=== PATIENT | male | born 1940 | race Two or more races ===

== ENCOUNTER 2017-08-21 17:18 | Emergency (ER) | payer MEDICARE, MEDICAID ==
[~2017-08-21] VITALS: Ht 172.7 cm; Wt 89.8 kg
--- NOTE | 2017-08-21 17:35 | NUR ---
PT BIB [facility] FOR COUGH AND CONGESTION X 2 MONTHS WITH RIB PAIN THAT WORSENS WITH COUGH. VSS. SEEN BY MD FOR EVAL. IV ACCESS STARTED. BLOOD DRAWN FOR LABS. SAFETY AND COMFORT MEASURES PROVIDED. WILL MONITOR.
[2017-08-21 17:48] LABS: BASOPHILS % (AUTO) 0.5 % (0.0-2.0); EOSINOPHILS # (AUTO) 0.1 /CMM (0.0-0.7); EOSINOPHILS % (AUTO) 1.3 % (0.0-6.0); HEMATOCRIT 43 % (39-51); HEMOGLOBIN 14.3 g/dL (13.5-17.5); LYMPHOCYTES # (AUTO) 1.7 /CMM (0.8-4.8); LYMPHOCYTES % (AUTO) 21.4 % (20.0-44.0); MEAN CORPUSCULAR HEMOGLOBIN 27 PG (26.0-33.0); MEAN CORPUSCULAR HGB CONC 33 g/dl (31.0-36.0); MEAN CORPUSCULAR VOLUME 83 fL (80-96); MONOCYTES # (AUTO) 0.7 /CMM (0.1-1.30); MONOCYTES % (AUTO) 8.4 % (2.0-12.0); NEUTROPHILS # (AUTO) 5.6 /CMM (1.8-8.9); NEUTROPHILS % (AUTO) 68.4 % (43.0-81.0); PLATELET COUNT (AUTO) 255 /CMM (150-450); RDW COEFFICIENT OF VARIATION 13.3 (11.5-15.0); RED BLOOD CELL COUNT(AUTO) 5.24 MIL/uL (4.5-6.0); WHITE BLOOD COUNT (AUTO) 8.1 K/uL (4.3-11.0)
[2017-08-21 17:58] LABS: CARBON DIOXIDE 30 mmol/L (21-32); CHLORIDE 106 mmol/L (98-107); CREATININE 1.2 mg/dL (0.6-1.3); GLUCOSE 99 mg/dL (74-106); SODIUM SERUM 139 mmol/L (136-145); UREA NITROGEN, BLOOD 14 mg/dL (7-18)
[2017-08-21 18:05] LABS: TROPONIN I < 0.017 ng/mL (0.00-0.056)
[2017-08-21 18:11] LABS: ALANINE AMINOTRANSFERASE 17 U/L (12-78); ALBUMIN 3.4 g/dL (3.4-5.0); ALKALINE PHOSPHATASE 61 U/L (46-116); ASPARTATE AMINOTRANSFERASE 18 U/L (15-37); B-TYPE NATRIURETIC PEPTIDE 1112 PG/ML (0-125); BILIRUBIN,DIRECT 0.1 mg/dL (0.0-0.2); BILIRUBIN,TOTAL 0.4 mg/dL (0.2-1.0); TOTAL PROTEIN, SERUM 6.7 g/dL (6.4-8.2)
[2017-08-21 18:27] LABS: INR 0.97 (0.87-1.13); PROTHROMBIN TIME 10.4 SECS (9.5-12.7)
[2017-08-21 20:26] VITALS: BP 124/74
--- NOTE | 2017-08-21 20:26 | NUR ---
PT OK TO DISCHARGE PER [employer]. Patient discharged to home in stable condition. Written and verbal after care instructions given. Patient verbalizes understanding of instruction.IV removed. Catheter intact and site benign. Pressure and 4x4 applied to site. No bleeding noted.Patient is awake and alert to self, day, and place. PT ambulatory with a steady gait
== END 2017-08-21 20:27 | disposition home or self-care (01) ==
LOC: ER 17:22
DX: R05 Cough (principal); E78.00 Pure hypercholesterolemia, unspecified; I10 Essential (primary) hypertension; K21.9 Gastro-esophageal reflux disease without esophagitis
CPT/HCPCS: 36415; 71010; 71250; 80048; 80076; 83880; 84484; 85025; 85378; 85610; 93005; 99285; A4606; Z7610

== ENCOUNTER 2025-07-13 16:24 | Inpatient (IN) | payer MEDICARE, OTHER ==
[~2025-07-13] VITALS: Ht 170.2 cm; Wt 67.2 kg
[~2025-07-13 16:24] MED LIST: IBUP-1955 PO; INHA1INH6 MC
[2025-07-13] MEDS: IV NS 0.9% 500 ML BAG IV ONE (16:55)
[2025-07-13 17:18] LABS: PLATELET COUNT (AUTO) 273 K/uL (150-450); RED BLOOD CELL COUNT(AUTO) 4.84 MIL/uL (4.5-6.0); RED CELL DISTRIBUTION WIDTH 15.5 % (11.5-15.0); WHITE BLOOD COUNT (AUTO) 6.7 K/uL (4.3-11.0)
[2025-07-13 17:31] LABS: ALCOHOL, BLOOD < 3 mg/dL (0-10)
[2025-07-13 17:32] LABS: SERUM AMMONIA 5 umol/L (11-32)
[2025-07-13 17:34] LABS: CALCIUM, SERUM 8.4 mg/dL (8.5-10.1); CREATININE 1.0 mg/dL (0.6-1.3); SODIUM SERUM 143 mmol/L (136-145); UREA NITROGEN, BLOOD 13 mg/dL (7-18)
[2025-07-13 17:44] LABS: ASPARTATE AMINOTRANSFERASE 13 U/L (15-37); TOTAL PROTEIN, SERUM 5.8 g/dL (6.4-8.2)
[2025-07-13 19:19] LABS: APPEARANCE,URINE CLEAR (CLEAR); BLOOD, URINE NEGATIVE Ery/uL (NEGATIVE); LEUKOCYTE ESTERASE ,URINE NEGATIVE (NEGATIVE); NITRITE, URINE NEGATIVE (NEGATIVE); UGLUCOSE NEGATIVE (NEGATIVE)
[2025-07-13] MEDS ORDERED: METF-440 PO (19:21)
[2025-07-13] MEDS ORDERED: BISA5TAB10 PO (19:21)
[2025-07-13] MEDS ORDERED: AMIO200T5 PO (19:21)
[2025-07-13] MEDS ORDERED: LOSA100T31 PO (19:21)
[2025-07-13 19:32] LABS: AMPHETAMINE, URINE NEGATIVE (NEGATIVE); BARBITURATE, URINE NEGATIVE (NEGATIVE); BENZODIAZEPINE, URINE NEGATIVE (NEGATIVE); CANNABINOID, URINE NEGATIVE (NEGATIVE); COCCAINE, URINE NEGATIVE (NEGATIVE); OPIATE, URINE NEGATIVE (NEGATIVE)
[2025-07-13 20:48] VITALS: BP 139/27; TEMP 98.2; O2SAT 98
[2025-07-13] MEDS ORDERED: MAG HYDROX/AL HYDROX/SIMETH 30 ML UDC PO PRN (21:00)
[2025-07-13] MEDS ORDERED: MAGNESIUM HYDROXIDE 30 ML UDC PO PRN (21:00)
[2025-07-13] MEDS ORDERED: ONDANSETRON HCL/PF 4 MG/2 ML VIAL IVP PRN (21:00)
[2025-07-13] MEDS ORDERED: AMIODARONE HCL 200 MG TABLET PO PRN (21:00)
[2025-07-13] MEDS ORDERED: LOSARTAN POTASSIUM 50 MG TABLET PO PRN (21:00)
[2025-07-13] MEDS ORDERED: METFORMIN 500 MG TABLET PO PRN (21:00)
[2025-07-13] MEDS: ENOXAPARIN SODIUM 40 MG/0.4 ML DISP.SYRIN SQ SCH (21:39)
[2025-07-13 21:52] VITALS: BP 128/70
[2025-07-14] VITALS (8 sets, daily range): BP systolic 80–175; BP diastolic 52–91; TEMP 97.3–98.1; O2SAT 96–98
[2025-07-14 06:35] LABS: PLATELET COUNT (AUTO) 243 K/uL (150-450); RED BLOOD CELL COUNT(AUTO) 4.46 MIL/uL (4.5-6.0); RED CELL DISTRIBUTION WIDTH 15.5 % (11.5-15.0); WHITE BLOOD COUNT (AUTO) 5.7 K/uL (4.3-11.0)
[2025-07-14 06:49] LABS: LDL 127.0 mg/dL (0-99)
[2025-07-14 07:03] LABS: CALCIUM, SERUM 7.9 mg/dL (8.5-10.1); CREATININE 0.8 mg/dL (0.6-1.3); PHOSPHORUS 3.1 mg/dL (2.5-4.9); SODIUM SERUM 141.0 mmol/L (136-145); UREA NITROGEN, BLOOD 13.0 mg/dL (7-18)
[2025-07-14] MEDS: PANTOPRAZOLE 40 MG TABLET.DR PO SCH (07:35)
[2025-07-14] MEDS: ATORVASTATIN 10 MG TABLET PO SCH (09:24)
[2025-07-14] MEDS: BISACODYL (5 MG) 5 MG TABLET.DR PO SCH (09:24)
[2025-07-14] MEDS: POTASSIUM CHLORIDE 20 MEQ TAB.PRT.SR PO SCH (11:19)
[2025-07-14] MEDS: IV NS 0.9% 1,000 ML IV PRN (11:36)
[2025-07-14] MEDS: ACETAMINOPHEN 325 MG TABLET PO PRN (20:35)
[2025-07-15] VITALS (8 sets, daily range): BP systolic 98–150; BP diastolic 62–95; TEMP 97–98.1; O2SAT 96–98
[2025-07-15 08:59] LABS: ASPARTATE AMINOTRANSFERASE 14 U/L (15-37); CALCIUM, SERUM 8.2 mg/dL (8.5-10.1); CREATININE 0.7 mg/dL (0.6-1.3); PHOSPHORUS 2.6 mg/dL (2.5-4.9); SODIUM SERUM 139 mmol/L (136-145); TOTAL PROTEIN, SERUM 5.8 g/dL (6.4-8.2); UREA NITROGEN, BLOOD 13 mg/dL (7-18)
[2025-07-15 09:07] LABS: PLATELET COUNT (AUTO) 256 K/uL (150-450); RED BLOOD CELL COUNT(AUTO) 4.92 MIL/uL (4.5-6.0); RED CELL DISTRIBUTION WIDTH 15.2 % (11.5-15.0); WHITE BLOOD COUNT (AUTO) 6.2 K/uL (4.3-11.0)
[2025-07-15] MEDS: POTASSIUM CHLORIDE 20 MEQ TAB.PRT.SR PO ONE (10:37)
[2025-07-16 00:05] VITALS: BP 136/75; TEMP 98.2; O2SAT 97
[2025-07-16 06:10] VITALS: BP_SYST 122; BP_SYST 138; BP_SYST 142; BP_DIAS 61; BP_DIAS 72; BP_DIAS 78
[2025-07-16 08:00] VITALS: BP 161/83; TEMP 98.2; O2SAT 95
[2025-07-16 10:21] LABS: PLATELET COUNT (AUTO) 256 K/uL (150-450); RED BLOOD CELL COUNT(AUTO) 5.49 MIL/uL (4.5-6.0); RED CELL DISTRIBUTION WIDTH 15.9 % (11.5-15.0); WHITE BLOOD COUNT (AUTO) 6.6 K/uL (4.3-11.0)
[2025-07-16 10:32] LABS: CALCIUM, SERUM 8.2 mg/dL (8.5-10.1); CREATININE 0.8 mg/dL (0.6-1.3); SODIUM SERUM 137.0 mmol/L (136-145); UREA NITROGEN, BLOOD 11.0 mg/dL (7-18)
[2025-07-16] MEDS ORDERED: ATOR10TA PO (11:11)
== END 2025-07-16 12:45 | disposition home health service (06) | DRG 73 ==
LOC: ER 16:30 → TELE 20:20
PROVIDERS: ADMIT Nurse Practitioner Family
DX: G90.89 Other disorders of autonomic nervous system (principal); G93.41 Metabolic encephalopathy; J90 Pleural effusion, not elsewhere classified; E86.0 Dehydration; I95.1 Orthostatic hypotension; E11.9 Type 2 diabetes mellitus without complications; I25.10 Atherosclerotic heart disease of native coronary artery without angina pectoris; I48.91 Unspecified atrial fibrillation; Z79.84 Long term (current) use of oral hypoglycemic drugs; Z86.73 Personal history of transient ischemic attack (TIA), and cerebral infarction without residual deficits; I10 Essential (primary) hypertension; E87.6 Hypokalemia; F41.9 Anxiety disorder, unspecified; F03.90 Unspecified dementia, unspecified severity, without behavioral disturbance, psychotic disturbance, mood disturbance, and anxiety; R53.1 Weakness; E78.5 Hyperlipidemia, unspecified; I08.0 Rheumatic disorders of both mitral and aortic valves; M19.09 Primary osteoarthritis, other specified site
CPT/HCPCS: 36415; 70450-TC; 71045-TC; 72125-TC; 80048-TC; 80053-TC; 80061-TC; 80076-TC; 82040-TC; 82140-TC; 82550-TC; 83735-TC; 84100-TC; 84439-TC; 84443-TC; 84484-TC; 85025-TC; 87086-TC; 93307-TC; 93880-TC; 97116-TC; 97530-TC; A4223; G0378; G0480; J1650; J7030